=== PATIENT | female | born 1955 | race Caucasian/White ===

== ENCOUNTER 2020-02-18 12:42 | Inpatient (IN) | payer SELFPAY ==
[~2020-02-18] VITALS: Ht 165.1 cm; Wt 110.7 kg
[2020-02-18 13:00] VITALS: BP_SYST 140
[2020-02-18 14:51] LABS: INFLUENZA A&B ANTIGEN SCREEN NEGATIVE FOR A & B (NEGATIVE); RESPIRATORY SYNCYTIAL VIRUS NEGATIVE (NEGATIVE)
[2020-02-18 15:02] LABS: CALCIUM 7.7 mg/dL (8.4-11.0); CREATININE 0.95 mg/dL (0.55-1.30); POTASSIUM 3.3 mmol/L (3.5-5.1)
[2020-02-18 15:04] LABS: MEAN CORPUSCULAR HEMOGLOBIN 33 pg (27-31); MONOCYTES # (AUTO) 0.4 K/uL (0.0-1.0); WHITE BLOOD COUNT (AUTO) 3.9 K/uL (4.8-10.8)
[2020-02-18 15:06] LABS: ALBUMIN 1.9 g/dL (3.4-4.8); C-REACTIVE PROTEIN QUANT 0.9 mg/dL (0-0.5); TOTAL BILIRUBIN 6.7 mg/dL (0.0-1.0)
[2020-02-18 15:08] LABS: BILIRUBIN,URINE 2+ (NEGATIVE); BLOOD, URINE 1+ (NEGATIVE); CLARITY/URINE SL CLOUDY (CLEAR); COLOR,URINE YELLOW (YELLOW); GLUCOSE,URINE TRACE (NEGATIVE); KETONES,URINE NEGATIVE (NEGATIVE); LEUKOCYTE ESTERASE ,URINE TRACE (NEGATIVE); NITRITE, URINE POSITIVE (NEGATIVE); PH,URINE 5.5 (5.0-8.0); PROTEIN URINE TRACE (NEGATIVE)
[2020-02-18 15:09] LABS: BASOPHILS % (AUTO) 0.6 % (0.0-2.0); HEMATOCRIT 37.7 % (36-48); HEMOGLOBIN 12.5 g/dL (12.0-16.0); LYMPHOCYTES # (AUTO) 0.4 K/uL (1.0-5.5); LYMPHOCYTES % (AUTO) 11.2 % (20.5-51.5); MEAN CORPUSCULAR HGB CONC 33 % (32-36); MEAN CORPUSCULAR VOLUME 99 fL (79.0-98.0); MONOCYTES % (AUTO) 9.7 % (1.7-9.3); NEUTROPHILS % (AUTO) 77.5 % (40.0-70.0); RED BLOOD CELL COUNT(AUTO) 3.82 MIL/uL (4.2-6.2); RED CELL DISTRIBUTION WIDTH 20.4 % (9.0-15.0)
[2020-02-18 15:19] LABS: PLATELET COUNT (AUTO) 100 K/uL (130-430)
[2020-02-18 15:20] LABS: BACTERIA,URINE FEW /HPF (None Seen)
[2020-02-18] MEDS ORDERED: PIPERACILLIN/TAZO 3.375 GM in NS 50 ML IV ONE (16:00)
[2020-02-18] MEDS ORDERED: NACL 0.9% 3,000 ML IV ONE (16:00)
[2020-02-18] MEDS ORDERED: LEVOFLOXACIN 500 MG/D5W 100 ML IV ONE (16:15)
[2020-02-18] MEDS ORDERED: PIPERACILLIN/TAZOBACTAM 3.375 GM/VIAL (ZOSYN) IV ONE (16:24)
[2020-02-18] MEDS ORDERED: PRO40 PO (19:00)
[2020-02-18] MEDS ORDERED: DOCU250C14 PO (19:00)
[2020-02-18] MEDS ORDERED: POLY17PO4 PO (19:00)
[2020-02-18 20:11] VITALS: BP_SYST 147
[2020-02-18] MEDS ORDERED: HYDROcodone/ACETAMIN 10-325 MG TAB PO PRN (23:45)
[2020-02-18] MEDS ORDERED: ACETAMINOPHEN 325 MG TABLET PO PRN (23:45)
[2020-02-18] MEDS ORDERED: ONDANSETRON HCL 4 MG/2 ML VIAL IVP PRN (23:45)
[2020-02-18] MEDS ORDERED: HYDROcodone/ACETAMIN 5-325 MG TAB (NORCO/ VICODIN) PO PRN (23:45)
[2020-02-18] MEDS ORDERED: LORazepam 2 MG/ML VIAL IVP PRN (23:45)
[2020-02-18] MEDS ORDERED: ALBUTEROL SULFATE 0.083% 2.5 MG/3 ML VIAL.NEB INH PRN (23:45)
[2020-02-19 00:30] VITALS: BP_SYST 130
[2020-02-19 05:07] VITALS: BP_SYST 130
[2020-02-19] MEDS: NORMAL SALINE 5 ML DISP.SYRIN IVF SCH ×5 (05:37→22:00)
[2020-02-19 07:07] LABS: BASOPHILS % (AUTO) 0.7 % (0.0-2.0); EOSINOPHILS # (AUTO) 0.1 K/uL (0.0-0.4); EOSINOPHILS % (AUTO) 2.6 % (0.0-4.0); HEMATOCRIT 32.9 % (36-48); LYMPHOCYTES # (AUTO) 0.8 K/uL (1.0-5.5); MEAN CORPUSCULAR HEMOGLOBIN 33 pg (27-31); MEAN CORPUSCULAR HGB CONC 33 % (32-36); MEAN CORPUSCULAR VOLUME 99 fL (79.0-98.0); MONOCYTES # (AUTO) 0.5 K/uL (0.0-1.0); MONOCYTES % (AUTO) 12.2 % (1.7-9.3); NEUTROPHILS # (AUTO) 2.5 K/uL (1.8-7.7); NEUTROPHILS % (AUTO) 63.5 % (40.0-70.0); PLATELET COUNT (AUTO) 90 K/uL (130-430); RED BLOOD CELL COUNT(AUTO) 3.32 MIL/uL (4.2-6.2); RED CELL DISTRIBUTION WIDTH 20.5 % (9.0-15.0)
[2020-02-19 07:30] LABS: CALCIUM 7.5 mg/dL (8.4-11.0); CREATININE 0.76 mg/dL (0.55-1.30); PHOSPHORUS 2.9 mg/dL (2.7-4.5); POTASSIUM 3.5 mmol/L (3.5-5.1)
[2020-02-19 08:00] VITALS: BP_SYST 131
[2020-02-19] MEDS: DOCUSATE SODIUM 250 MG CAPSULE PO SCH ×2 (08:32→21:45)
[2020-02-19] MEDS: PANTOPRAZOLE SODIUM 40 MG TAB PO SCH (08:32)
[2020-02-19] MEDS ORDERED: POLYETHYLENE GLYCOL 3350, 17 GM/ POWD.PACK PO SCH (09:00)
[2020-02-19] MEDS: IPRATROPIUM BROM 0.5 MG/2.5 ML VIAL.NEB (ATROVENT) INH SCH ×5 (10:07→23:54)
[2020-02-19 12:00] VITALS: BP_SYST 147
[2020-02-19] MEDS ORDERED: ACETAMINOPHEN 325 MG TABLET PO PRN (12:30)
[2020-02-19] MEDS ORDERED: HYDROcodone/ACETAMIN 5-325 MG TAB (NORCO/ VICODIN) PO PRN (12:30)
[2020-02-19] MEDS ORDERED: ALBUTEROL SULFATE 0.083% 2.5 MG/3 ML VIAL.NEB INH PRN (12:30)
[2020-02-19] MEDS ORDERED: ONDANSETRON HCL 4 MG/2 ML VIAL IVP PRN (12:30)
[2020-02-19] MEDS ORDERED: LORazepam 2 MG/ML VIAL IVP PRN (12:30)
[2020-02-19] MEDS ORDERED: FUROSEMIDE 20 MG TABLET PO ONE (13:00)
[2020-02-19] MEDS ORDERED: NORMAL SALINE 5 ML DISP.SYRIN IVF SCH (14:00)
[2020-02-19 16:00] VITALS: BP_SYST 144
[2020-02-19] MEDS: LEVOFLOXACIN 500 MG/D5W 100 ML IV SCH (16:45)
[2020-02-19] MEDS: VANCOMYCIN HCL 1,500 MG in NS 250 ML IV SCH (19:13)
[2020-02-19 20:40] LABS: BARBITURATE, URINE NEGATIVE (NEG <=200); BENZODIAZEPINE, URINE NEGATIVE (NEG <=150); CANNABINOID, URINE NEGATIVE (NEG <=50); COCAINE, URINE NEGATIVE (NEG <=150); METHAMPHETAMINES SCREEN,URINE NEGATIVE (NEG <=500); OPIATE, URINE NEGATIVE (NEG <=100); PHENCYCLIDINE SCREEN,URINE NEGATIVE (NEG <=25); UR TRICYCLIC ANTIDEPRESSANTS NEGATIVE (NEG <=300); URINE AMPHETAMINE NEGATIVE (NEG <=500); URINE METHADONE NEGATIVE (NEG <=200); URINE OXYCODONE SCREEN NEGATIVE (NEG <=100); URINE PROPOXYPHENE SCREEN NEGATIVE (NEG <=300)
[2020-02-19 21:30] VITALS: BP_SYST 121
[2020-02-19] MEDS: POLYETHYLENE GLYCOL 3350, 17 GM/ POWD.PACK PO SCH (21:45)
[2020-02-20] VITALS (7 sets, daily range): BP systolic 104–141
[2020-02-20] MEDS: IPRATROPIUM BROM 0.5 MG/2.5 ML VIAL.NEB (ATROVENT) INH SCH ×6 (03:05→23:00)
[2020-02-20] MEDS: NORMAL SALINE 5 ML DISP.SYRIN IVF SCH ×6 (06:00→21:22)
[2020-02-20] MEDS: VANCOMYCIN HCL 1,500 MG in NS 250 ML IV SCH ×2 (06:15→18:45)
[2020-02-20 07:22] LABS: BASOPHILS % (AUTO) 0.7 % (0.0-2.0); EOSINOPHILS # (AUTO) 0.1 K/uL (0.0-0.4); EOSINOPHILS % (AUTO) 3.7 % (0.0-4.0); HEMATOCRIT 32.7 % (36-48); HEMOGLOBIN 10.8 g/dL (12.0-16.0); LYMPHOCYTES # (AUTO) 0.6 K/uL (1.0-5.5); LYMPHOCYTES % (AUTO) 20.1 % (20.5-51.5); MEAN CORPUSCULAR HEMOGLOBIN 33 pg (27-31); MEAN CORPUSCULAR HGB CONC 33 % (32-36); MEAN CORPUSCULAR VOLUME 99 fL (79.0-98.0); MONOCYTES # (AUTO) 0.5 K/uL (0.0-1.0); MONOCYTES % (AUTO) 14.4 % (1.7-9.3); NEUTROPHILS # (AUTO) 1.9 K/uL (1.8-7.7); NEUTROPHILS % (AUTO) 61.1 % (40.0-70.0); PLATELET COUNT (AUTO) 83 K/uL (130-430); RED BLOOD CELL COUNT(AUTO) 3.31 MIL/uL (4.2-6.2); RED CELL DISTRIBUTION WIDTH 20.7 % (9.0-15.0); WHITE BLOOD COUNT (AUTO) 3.2 K/uL (4.8-10.8)
[2020-02-20 07:31] LABS: INR 1.9 (0.8-1.2); PROTHROMBIN TIME 18.5 SECS (9.5-12.5)
[2020-02-20 07:38] LABS: ALBUMIN 1.5 g/dL (3.4-4.8); BILIRUBIN,DIRECT 2.6 mg/dL (0.0-0.3); CALCIUM 7.4 mg/dL (8.4-11.0); CREATININE 0.83 mg/dL (0.55-1.30); POTASSIUM 3.3 mmol/L (3.5-5.1); TOTAL BILIRUBIN 5.4 mg/dL (0.0-1.0)
[2020-02-20 09:03] LABS: TOTAL IRON BIND. CAPACITY 224 ug/dL (250-450)
[2020-02-20] MEDS: PANTOPRAZOLE SODIUM 40 MG TAB PO SCH (10:19)
[2020-02-20] MEDS: DOCUSATE SODIUM 250 MG CAPSULE PO SCH ×2 (10:19→21:21)
[2020-02-20] MEDS: FUROSEMIDE 20 MG TABLET PO SCH (10:19)
[2020-02-20] MEDS: POLYETHYLENE GLYCOL 3350, 17 GM/ POWD.PACK PO SCH ×2 (10:19→17:45)
[2020-02-20] MEDS: LEVOFLOXACIN 500 MG/D5W 100 ML IV SCH (16:57)
[2020-02-20] MEDS ORDERED: PHYTONADIONE 10 MG/ML AMP SUBCUT ONE (17:45)
[2020-02-21] MEDS: IPRATROPIUM BROM 0.5 MG/2.5 ML VIAL.NEB (ATROVENT) INH SCH ×6 (03:00→23:00)
[2020-02-21] MEDS: VANCOMYCIN HCL 1,500 MG in NS 250 ML IV SCH (05:15)
[2020-02-21] MEDS: NORMAL SALINE 5 ML DISP.SYRIN IVF SCH ×5 (05:15→22:00)
[2020-02-21 06:14] LABS: BASOPHILS % (AUTO) 0.8 % (0.0-2.0); EOSINOPHILS # (AUTO) 0.1 K/uL (0.0-0.4); EOSINOPHILS % (AUTO) 3.6 % (0.0-4.0); HEMATOCRIT 33.4 % (36-48); HEMOGLOBIN 11.1 g/dL (12.0-16.0); LYMPHOCYTES # (AUTO) 0.7 K/uL (1.0-5.5); LYMPHOCYTES % (AUTO) 18.9 % (20.5-51.5); MEAN CORPUSCULAR HEMOGLOBIN 33 pg (27-31); MEAN CORPUSCULAR HGB CONC 33 % (32-36); MEAN CORPUSCULAR VOLUME 100 fL (79.0-98.0); MONOCYTES # (AUTO) 0.4 K/uL (0.0-1.0); MONOCYTES % (AUTO) 12.3 % (1.7-9.3); NEUTROPHILS # (AUTO) 2.2 K/uL (1.8-7.7); NEUTROPHILS % (AUTO) 64.4 % (40.0-70.0); PLATELET COUNT (AUTO) 90 K/uL (130-430); RED BLOOD CELL COUNT(AUTO) 3.34 MIL/uL (4.2-6.2); RED CELL DISTRIBUTION WIDTH 21.2 % (9.0-15.0); WHITE BLOOD COUNT (AUTO) 3.5 K/uL (4.8-10.8)
[2020-02-21 06:30] LABS: ALBUMIN 1.5 g/dL (3.4-4.8); C-REACTIVE PROTEIN QUANT 1.6 mg/dL (0-0.5); CALCIUM 7.5 mg/dL (8.4-11.0); CREATININE 0.96 mg/dL (0.55-1.30); TOTAL BILIRUBIN 5.2 mg/dL (0.0-1.0)
[2020-02-21 06:54] LABS: POTASSIUM 2.9 mmol/L (3.5-5.1)
[2020-02-21] MEDS ORDERED: KCL 40 mEq in 100 mL (PREMIX) 100 ML IV ONE (07:30)
[2020-02-21] MEDS ORDERED: LIDOCAINE 1% 10 MG/ML, 50 ML MDV INJ ONE (07:30)
[2020-02-21 07:34] LABS: ERYTHROCYTE SEDIMENTATION RATE 49 MM/HR (0-20)
[2020-02-21 08:09] VITALS: BP_SYST 143
[2020-02-21] MEDS ORDERED: POTASSIUM CHLORIDE 40 MEQ, LIDOCAINE JECT 2% PF 100 MG 50 MG in NS 250 ML IV ONE (08:15)
[2020-02-21] MEDS: PANTOPRAZOLE SODIUM 40 MG TAB PO SCH (09:38)
[2020-02-21] MEDS: FUROSEMIDE 20 MG TABLET PO SCH (09:39)
[2020-02-21] MEDS: POLYETHYLENE GLYCOL 3350, 17 GM/ POWD.PACK PO SCH (09:39)
[2020-02-21] MEDS: DOCUSATE SODIUM 250 MG CAPSULE PO SCH ×2 (09:39→20:02)
[2020-02-21 12:55] VITALS: BP_SYST 136
[2020-02-21] MEDS: LEVOFLOXACIN 500 MG/D5W 100 ML IV SCH (16:36)
[2020-02-21 16:47] VITALS: BP_SYST 123
[2020-02-21 20:00] VITALS: BP_SYST 129
[2020-02-22] VITALS (7 sets, daily range): BP systolic 118–141
[2020-02-22 01:31] LABS: AFP, TUMOR MARKER 2.1 ng/mL (0.0-8.3); FERRITIN 66 ng/mL (15-150)
[2020-02-22] MEDS: IPRATROPIUM BROM 0.5 MG/2.5 ML VIAL.NEB (ATROVENT) INH SCH ×6 (03:34→23:25)
[2020-02-22] MEDS: NORMAL SALINE 5 ML DISP.SYRIN IVF SCH ×6 (06:00→22:00)
[2020-02-22 06:19] LABS: C-REACTIVE PROTEIN QUANT 1.2 mg/dL (0-0.5); CALCIUM 7.5 mg/dL (8.4-11.0); CREATININE 0.95 mg/dL (0.55-1.30); POTASSIUM 3.5 mmol/L (3.5-5.1)
[2020-02-22 07:10] LABS: HEPATITIS A AB, IgM Negative (Negative); HEPATITIS B CORE AB, IgM Negative (Negative); HEPATITIS B SURFACE AG Negative (Negative)
[2020-02-22 07:36] LABS: BASOPHILS % (AUTO) 0.7 % (0.0-2.0); EOSINOPHILS # (AUTO) 0.1 K/uL (0.0-0.4); EOSINOPHILS % (AUTO) 5.1 % (0.0-4.0); HEMOGLOBIN 10.2 g/dL (12.0-16.0); LYMPHOCYTES # (AUTO) 0.3 K/uL (1.0-5.5); LYMPHOCYTES % (AUTO) 11.4 % (20.5-51.5); MEAN CORPUSCULAR HEMOGLOBIN 33 pg (27-31); MEAN CORPUSCULAR HGB CONC 33 % (32-36); MEAN CORPUSCULAR VOLUME 101 fL (79.0-98.0); MONOCYTES # (AUTO) 0.4 K/uL (0.0-1.0); MONOCYTES % (AUTO) 14.9 % (1.7-9.3); NEUTROPHILS # (AUTO) 1.9 K/uL (1.8-7.7); NEUTROPHILS % (AUTO) 67.9 % (40.0-70.0); RED BLOOD CELL COUNT(AUTO) 3.08 MIL/uL (4.2-6.2)
[2020-02-22 07:39] LABS: WHITE BLOOD COUNT (AUTO) 2.8 K/uL (4.8-10.8)
[2020-02-22] MEDS: POLYETHYLENE GLYCOL 3350, 17 GM/ POWD.PACK PO SCH (08:29)
[2020-02-22] MEDS: FUROSEMIDE 20 MG TABLET PO SCH (08:29)
[2020-02-22] MEDS: PANTOPRAZOLE SODIUM 40 MG TAB PO SCH (08:30)
[2020-02-22] MEDS: DOCUSATE SODIUM 250 MG CAPSULE PO SCH ×2 (08:30→21:07)
[2020-02-22 08:50] LABS: ERYTHROCYTE SEDIMENTATION RATE 49 MM/HR (0-20)
[2020-02-22 10:21] LABS: PLATELET COUNT (AUTO) 65 K/uL (130-430)
[2020-02-22 16:06] LABS: ANTI NUCLEAR AB WITH REFLEX Negative (Negative)
[2020-02-22] MEDS: LEVOFLOXACIN 500 MG/D5W 100 ML IV SCH (16:27)
[2020-02-23] MEDS: HYDROcodone/ACETAMIN 10-325 MG TAB PO PRN ×2 (01:17→16:30)
[2020-02-23] MEDS: IPRATROPIUM BROM 0.5 MG/2.5 ML VIAL.NEB (ATROVENT) INH SCH ×6 (03:11→23:22)
[2020-02-23] MEDS: NORMAL SALINE 5 ML DISP.SYRIN IVF SCH ×6 (06:00→20:49)
[2020-02-23 06:20] LABS: ALBUMIN 1.5 g/dL (3.4-4.8); CALCIUM 7.5 mg/dL (8.4-11.0); CREATININE 0.95 mg/dL (0.55-1.30); POTASSIUM 3.6 mmol/L (3.5-5.1); TOTAL BILIRUBIN 4.6 mg/dL (0.0-1.0)
[2020-02-23 06:21] LABS: BASOPHILS % (AUTO) 0.6 % (0.0-2.0); EOSINOPHILS # (AUTO) 0.1 K/uL (0.0-0.4); HEMATOCRIT 30.6 % (36-48); HEMOGLOBIN 10.2 g/dL (12.0-16.0); LYMPHOCYTES # (AUTO) 0.4 K/uL (1.0-5.5); LYMPHOCYTES % (AUTO) 11.9 % (20.5-51.5); MEAN CORPUSCULAR HEMOGLOBIN 34 pg (27-31); MEAN CORPUSCULAR HGB CONC 33 % (32-36); MEAN CORPUSCULAR VOLUME 100 fL (79.0-98.0); MONOCYTES # (AUTO) 0.4 K/uL (0.0-1.0); MONOCYTES % (AUTO) 12.6 % (1.7-9.3); NEUTROPHILS # (AUTO) 2.1 K/uL (1.8-7.7); NEUTROPHILS % (AUTO) 70.9 % (40.0-70.0); PLATELET COUNT (AUTO) 67 K/uL (130-430); RED BLOOD CELL COUNT(AUTO) 3.06 MIL/uL (4.2-6.2); RED CELL DISTRIBUTION WIDTH 21.5 % (9.0-15.0)
[2020-02-23 07:01] LABS: C-REACTIVE PROTEIN QUANT 1.3 mg/dL (0-0.5)
[2020-02-23 07:40] LABS: ERYTHROCYTE SEDIMENTATION RATE 57 MM/HR (0-20)
[2020-02-23 07:50] VITALS: BP_SYST 130
[2020-02-23] MEDS: PANTOPRAZOLE SODIUM 40 MG TAB PO SCH (08:35)
[2020-02-23] MEDS: POLYETHYLENE GLYCOL 3350, 17 GM/ POWD.PACK PO SCH (08:36)
[2020-02-23] MEDS: FUROSEMIDE 20 MG TABLET PO SCH (08:36)
[2020-02-23] MEDS: DOCUSATE SODIUM 250 MG CAPSULE PO SCH ×2 (08:36→20:47)
[2020-02-23 09:40] LABS: ALBUMIN 1.7 g/dL (3.4-4.8); BILIRUBIN,DIRECT 2.3 mg/dL (0.0-0.3); TOTAL BILIRUBIN 5.1 mg/dL (0.0-1.0)
[2020-02-23 12:56] VITALS: BP_SYST 131
[2020-02-23 16:00] VITALS: BP_SYST 131
[2020-02-23] MEDS: LEVOFLOXACIN 500 MG/D5W 100 ML IV SCH (16:25)
[2020-02-23 20:00] VITALS: BP_SYST 134
[2020-02-24 00:07] VITALS: BP_SYST 128
[2020-02-24] MEDS: IPRATROPIUM BROM 0.5 MG/2.5 ML VIAL.NEB (ATROVENT) INH SCH ×6 (03:35→23:50)
[2020-02-24] MEDS: NORMAL SALINE 5 ML DISP.SYRIN IVF SCH ×6 (05:28→21:26)
[2020-02-24 06:32] LABS: BASOPHILS % (AUTO) 0.6 % (0.0-2.0); EOSINOPHILS # (AUTO) 0.1 K/uL (0.0-0.4); EOSINOPHILS % (AUTO) 3.8 % (0.0-4.0); HEMATOCRIT 29.5 % (36-48); HEMOGLOBIN 9.8 g/dL (12.0-16.0); LYMPHOCYTES # (AUTO) 0.6 K/uL (1.0-5.5); MEAN CORPUSCULAR HEMOGLOBIN 33 pg (27-31); MEAN CORPUSCULAR HGB CONC 33 % (32-36); MEAN CORPUSCULAR VOLUME 101 fL (79.0-98.0); MONOCYTES # (AUTO) 0.5 K/uL (0.0-1.0); MONOCYTES % (AUTO) 14.4 % (1.7-9.3); NEUTROPHILS # (AUTO) 2.1 K/uL (1.8-7.7); NEUTROPHILS % (AUTO) 62.2 % (40.0-70.0); PLATELET COUNT (AUTO) 55 K/uL (130-430); RED BLOOD CELL COUNT(AUTO) 2.93 MIL/uL (4.2-6.2); WHITE BLOOD COUNT (AUTO) 3.3 K/uL (4.8-10.8)
[2020-02-24 06:50] LABS: ALBUMIN 1.5 g/dL (3.4-4.8); C-REACTIVE PROTEIN QUANT 1.1 mg/dL (0-0.5); CALCIUM 7.4 mg/dL (8.4-11.0); POTASSIUM 3.5 mmol/L (3.5-5.1)
[2020-02-24 07:09] LABS: CREATININE 0.83 mg/dL (0.55-1.30)
[2020-02-24 08:11] LABS: ERYTHROCYTE SEDIMENTATION RATE 60 MM/HR (0-20)
[2020-02-24] MEDS: DOCUSATE SODIUM 250 MG CAPSULE PO SCH ×2 (08:36→21:20)
[2020-02-24] MEDS: PANTOPRAZOLE SODIUM 40 MG TAB PO SCH (08:37)
[2020-02-24] MEDS: FUROSEMIDE 20 MG TABLET PO SCH (08:37)
[2020-02-24] MEDS: POLYETHYLENE GLYCOL 3350, 17 GM/ POWD.PACK PO SCH (08:37)
[2020-02-24 09:37] VITALS: BP_SYST 133
[2020-02-24 11:33] LABS: ANTI-SMOOTH MUSCLE AB 20 Units (0-19)
[2020-02-24 12:24] VITALS: BP_SYST 129
[2020-02-24] MEDS: LEVOFLOXACIN 500 MG/D5W 100 ML IV SCH (16:10)
[2020-02-24 16:46] VITALS: BP_SYST 122
[2020-02-24] MEDS ORDERED: FURO-150 PO (17:51)
[2020-02-24] MEDS ORDERED: DOXY100T2 PO (17:51)
[2020-02-24] MEDS ORDERED: HYDR-4272 PO (17:51)
[2020-02-24] MEDS ORDERED: DOCU250C14 PO (17:51)
[2020-02-24] MEDS ORDERED: POLY17PO4 PO (17:51)
[2020-02-24] MEDS ORDERED: PRO40 PO (17:51)
[2020-02-24 20:45] VITALS: BP_SYST 130
[2020-02-24 23:46] VITALS: BP_SYST 114
[2020-02-25] MEDS: IPRATROPIUM BROM 0.5 MG/2.5 ML VIAL.NEB (ATROVENT) INH SCH ×5 (03:49→23:55)
[2020-02-25] MEDS: NORMAL SALINE 5 ML DISP.SYRIN IVF SCH ×4 (05:56→20:04)
[2020-02-25 08:09] LABS: ALBUMIN 1.5 g/dL (3.4-4.8); C-REACTIVE PROTEIN QUANT 1.2 mg/dL (0-0.5); CALCIUM 7.3 mg/dL (8.4-11.0); CREATININE 0.99 mg/dL (0.55-1.30); POTASSIUM 3.8 mmol/L (3.5-5.1)
[2020-02-25 08:15] LABS: BASOPHILS % (AUTO) 0.5 % (0.0-2.0); EOSINOPHILS # (AUTO) 0.1 K/uL (0.0-0.4); EOSINOPHILS % (AUTO) 4.1 % (0.0-4.0); HEMATOCRIT 29.8 % (36-48); HEMOGLOBIN 9.8 g/dL (12.0-16.0); LYMPHOCYTES # (AUTO) 0.6 K/uL (1.0-5.5); MEAN CORPUSCULAR HEMOGLOBIN 34 pg (27-31); MEAN CORPUSCULAR HGB CONC 33 % (32-36); MEAN CORPUSCULAR VOLUME 101 fL (79.0-98.0); MONOCYTES # (AUTO) 0.4 K/uL (0.0-1.0); MONOCYTES % (AUTO) 13.3 % (1.7-9.3); NEUTROPHILS # (AUTO) 2.1 K/uL (1.8-7.7); NEUTROPHILS % (AUTO) 65.1 % (40.0-70.0); RED BLOOD CELL COUNT(AUTO) 2.94 MIL/uL (4.2-6.2); RED CELL DISTRIBUTION WIDTH 21.8 % (9.0-15.0); WHITE BLOOD COUNT (AUTO) 3.2 K/uL (4.8-10.8)
[2020-02-25 09:05] LABS: ERYTHROCYTE SEDIMENTATION RATE 50 MM/HR (0-20)
[2020-02-25] MEDS: DOCUSATE SODIUM 250 MG CAPSULE PO SCH ×2 (09:18→20:04)
[2020-02-25] MEDS: PANTOPRAZOLE SODIUM 40 MG TAB PO SCH (09:18)
[2020-02-25] MEDS: FUROSEMIDE 20 MG TABLET PO SCH (09:18)
[2020-02-25] MEDS: POLYETHYLENE GLYCOL 3350, 17 GM/ POWD.PACK PO SCH (09:18)
[2020-02-25 10:04] LABS: PLATELET COUNT (AUTO) 30 K/uL (130-430)
[2020-02-25 12:41] VITALS: BP_SYST 122
[2020-02-25] MEDS: LEVOFLOXACIN 500 MG/D5W 100 ML IV SCH (16:20)
[2020-02-25 16:23] VITALS: BP_SYST 122
[2020-02-25 16:36] VITALS: BP_SYST 117
[2020-02-25 20:14] VITALS: BP_SYST 131
[2020-02-26] MEDS: IPRATROPIUM BROM 0.5 MG/2.5 ML VIAL.NEB (ATROVENT) INH SCH ×3 (03:50→11:18)
[2020-02-26] MEDS: NORMAL SALINE 5 ML DISP.SYRIN IVF SCH (05:58)
[2020-02-26 06:38] LABS: BASOPHILS % (AUTO) 0.7 % (0.0-2.0); EOSINOPHILS # (AUTO) 0.1 K/uL (0.0-0.4); EOSINOPHILS % (AUTO) 3.2 % (0.0-4.0); HEMATOCRIT 29.7 % (36-48); HEMOGLOBIN 9.8 g/dL (12.0-16.0); LYMPHOCYTES # (AUTO) 0.6 K/uL (1.0-5.5); LYMPHOCYTES % (AUTO) 17.2 % (20.5-51.5); MEAN CORPUSCULAR HEMOGLOBIN 33 pg (27-31); MEAN CORPUSCULAR HGB CONC 33 % (32-36); MEAN CORPUSCULAR VOLUME 101 fL (79.0-98.0); MONOCYTES # (AUTO) 0.5 K/uL (0.0-1.0); MONOCYTES % (AUTO) 14.6 % (1.7-9.3); NEUTROPHILS # (AUTO) 2.1 K/uL (1.8-7.7); NEUTROPHILS % (AUTO) 64.3 % (40.0-70.0); PLATELET COUNT (AUTO) 55 K/uL (130-430); RED BLOOD CELL COUNT(AUTO) 2.95 MIL/uL (4.2-6.2); WHITE BLOOD COUNT (AUTO) 3.3 K/uL (4.8-10.8)
[2020-02-26 06:47] LABS: C-REACTIVE PROTEIN QUANT 1.2 mg/dL (0-0.5); CREATININE 0.99 mg/dL (0.55-1.30); POTASSIUM 3.5 mmol/L (3.5-5.1)
[2020-02-26 07:06] LABS: HEPATITIS A AB, IgM Negative (Negative); HEPATITIS B CORE AB, IgM Negative (Negative); HEPATITIS B SURFACE AG Negative (Negative)
[2020-02-26 07:38] LABS: ERYTHROCYTE SEDIMENTATION RATE 57 MM/HR (0-20)
[2020-02-26 08:00] VITALS: BP_SYST 133
[2020-02-26 08:08] LABS: FOLATE (FOLIC ACID) 11.1 ng/mL (>3.0)
[2020-02-26] MEDS: DOCUSATE SODIUM 250 MG CAPSULE PO SCH (08:39)
[2020-02-26] MEDS: PANTOPRAZOLE SODIUM 40 MG TAB PO SCH (08:39)
[2020-02-26] MEDS: POLYETHYLENE GLYCOL 3350, 17 GM/ POWD.PACK PO SCH (08:39)
[2020-02-26] MEDS: FUROSEMIDE 20 MG TABLET PO SCH (08:43)
[2020-02-26 10:55] VITALS: BP_SYST 138
[2020-02-26 12:45] VITALS: BP_SYST 114
[2020-02-26] MEDS ORDERED: LEVOFLOXACIN 500 MG/D5W 100 ML IV SCH (17:00)
== END 2020-02-26 14:36 | disposition home or self-care (01) | DRG 871 ==
LOC: SED 12:42 → EEVIPCON 12:42 → STU 17:04
PROVIDERS: ADMIT Preventive Medicine Preventive Medicine/Occupational Environmental Medicine; ATTEND Preventive Medicine Preventive Medicine/Occupational Environmental Medicine
DX: A41.01 Sepsis due to Methicillin susceptible Staphylococcus aureus (principal); E43 Unspecified severe protein-calorie malnutrition; J18.9 Pneumonia, unspecified organism; J96.01 Acute respiratory failure with hypoxia; D61.818 Other pancytopenia; E87.1 Hypo-osmolality and hyponatremia; J44.0 Chronic obstructive pulmonary disease with (acute) lower respiratory infection; N39.0 Urinary tract infection, site not specified; R18.8 Other ascites; Z68.41 Body mass index [BMI] 40.0-44.9, adult; E66.01 Morbid (severe) obesity due to excess calories; E83.51 Hypocalcemia; E87.6 Hypokalemia; F17.210 Nicotine dependence, cigarettes, uncomplicated; K59.09 Other constipation; K74.60 Unspecified cirrhosis of liver; G89.29 Other chronic pain; Z20.828 Contact with and (suspected) exposure to other viral communicable diseases; D69.6 Thrombocytopenia, unspecified; D64.9 Anemia, unspecified; M54.9 Dorsalgia, unspecified; Z85.43 Personal history of malignant neoplasm of ovary; Z90.710 Acquired absence of both cervix and uterus; Z90.49 Acquired absence of other specified parts of digestive tract; Z79.899 Other long term (current) drug therapy; Z98.51 Tubal ligation status
CPT/HCPCS: 36415; 36600; 71045; 74018; 76700-TC; 80048; 80053; 80074; 80076; 80202-TC; 80307; 81000-TC; 82105; 82390; 82550-TC; 82607; 82728; 82746; 82803-TC; 83516; 83540-TC; 83550-TC; 83605; 83615-TC; 83735-TC; 83880; 84100-TC; 84443-TC; 84484; 85025; 85610-TC; 85651-TC; 86038; 86140; 86710; 87040-TC; 87086; 87186-TC; 87420; 93005; 93306; 94640; 94760; 96365; 96367; 97112-GP; 97116-GP; 97530-GP; 99291; G0378; J1956; J2543; J3370; J3430; J3480; J7030; J7050; J7613; U0002

== ENCOUNTER 2020-04-19 14:25 | Inpatient (IN) | payer MEDICAID, SELFPAY ==
[~2020-04-19] VITALS: Ht 165.1 cm; Wt 122.9 kg
[~2020-04-19 14:25] MED LIST: DOCU250C14 PO; DOXY100T2 PO; FURO-150 PO; HYDR-4272 PO; POLY17PO4 PO; PRO40 PO
[2020-04-19 15:02] VITALS: BP_SYST 125
[2020-04-19 15:55] LABS: BASOPHILS % (AUTO) 0.3 % (0.0-2.0); EOSINOPHILS # (AUTO) 0.2 K/uL (0.0-0.4); EOSINOPHILS % (AUTO) 3.2 % (0.0-4.0); HEMATOCRIT 26.5 % (36-48); HEMOGLOBIN 8.7 g/dL (12.0-16.0); LYMPHOCYTES # (AUTO) 0.6 K/uL (1.0-5.5); LYMPHOCYTES % (AUTO) 9.9 % (20.5-51.5); MEAN CORPUSCULAR HEMOGLOBIN 35 pg (27-31); MEAN CORPUSCULAR HGB CONC 33 % (32-36); MEAN CORPUSCULAR VOLUME 107 fL (79.0-98.0); MONOCYTES # (AUTO) 0.7 K/uL (0.0-1.0); MONOCYTES % (AUTO) 10.3 % (1.7-9.3); NEUTROPHILS # (AUTO) 4.9 K/uL (1.8-7.7); NEUTROPHILS % (AUTO) 76.3 % (40.0-70.0); PLATELET COUNT (AUTO) 94 K/uL (130-430); RED BLOOD CELL COUNT(AUTO) 2.48 MIL/uL (4.2-6.2); RED CELL DISTRIBUTION WIDTH 19.4 % (9.0-15.0); WHITE BLOOD COUNT (AUTO) 6.4 K/uL (4.8-10.8)
[2020-04-19 16:10] LABS: CALCIUM 7.8 mg/dL (8.4-11.0); CREATININE 1.05 mg/dL (0.55-1.30); POTASSIUM 3.5 mmol/L (3.5-5.1)
[2020-04-19 16:15] LABS: INR 1.8 (0.8-1.2)
[2020-04-19 16:17] LABS: ALBUMIN 1.5 g/dL (3.4-4.8); TOTAL BILIRUBIN 6.7 mg/dL (0.0-1.0)
[2020-04-19] MEDS ORDERED: PIPERACILLIN/TAZO 3.375 GM in NS 50 ML IV ONE (17:00)
[2020-04-19] MEDS ORDERED: NACL 0.9% 3,000 ML IV ONE (17:00)
[2020-04-19] MEDS ORDERED: LACTULOSE 20 GM/30 ML UDC PO ONE (17:15)
[2020-04-19 17:24] LABS: BILIRUBIN,URINE 2+ (NEGATIVE); BLOOD, URINE NEGATIVE (NEGATIVE); COLOR,URINE ORANGE (YELLOW); GLUCOSE,URINE NEGATIVE (NEGATIVE); KETONES,URINE TRACE (NEGATIVE); LEUKOCYTE ESTERASE ,URINE TRACE (NEGATIVE); NITRITE, URINE POSITIVE (NEGATIVE); PH,URINE 5.5 (5.0-8.0); PROTEIN URINE TRACE (NEGATIVE)
[2020-04-19] MEDS ORDERED: LEVOFLOXACIN 500 MG/D5W 100 ML IV ONE (17:30)
[2020-04-19] MEDS ORDERED: PIPERACILLIN/TAZOBACTAM 3.375 GM/VIAL (ZOSYN) IV ONE (17:30)
[2020-04-19 17:43] LABS: CLARITY/URINE HAZY (CLEAR)
[2020-04-19 18:39] LABS: BACTERIA,URINE FEW /HPF (None Seen); RBC,URINE 0-3 /HPF (0-3)
[2020-04-19 18:40] LABS: MUCUS,URINE 3+ /LPF (None Seen); OTHER CASTS, URINE WBC CASTS 1+ /LPF (None Seen)
[2020-04-19 19:22] VITALS: BP_SYST 125
[2020-04-19] MEDS: SPIRONOLACTONE 25 MG TABLET (ALDACTONE) PO SCH (21:45)
[2020-04-19] MEDS: FUROSEMIDE 40 MG TABLET PO SCH (21:45)
[2020-04-19] MEDS ORDERED: HYDROcodone/ACETAMIN 5-325 MG TAB (NORCO/ VICODIN) PO PRN (21:45)
[2020-04-19] MEDS ORDERED: LEVOFLOXACIN 500 MG/D5W 100 ML IV SCH (21:45)
[2020-04-19] MEDS ORDERED: ZOLPIDEM TARTRATE 5 MG TABLET PO PRN (21:45)
[2020-04-19] MEDS: LACTULOSE 20 GM/30 ML UDC PO SCH (22:00)
[2020-04-19] MEDS ORDERED: MAG-AL HYDROX/SIMETH 30 ML UDC PO PRN (22:00)
[2020-04-19] MEDS ORDERED: ACETAMINOPHEN 325 MG TABLET PO PRN (22:00)
[2020-04-20] VITALS (7 sets, daily range): BP systolic 111–151
[2020-04-20 06:08] LABS: BASOPHILS % (AUTO) 0.5 % (0.0-2.0); EOSINOPHILS # (AUTO) 0.3 K/uL (0.0-0.4); EOSINOPHILS % (AUTO) 4.9 % (0.0-4.0); HEMATOCRIT 23.3 % (36-48); HEMOGLOBIN 7.9 g/dL (12.0-16.0); LYMPHOCYTES # (AUTO) 0.7 K/uL (1.0-5.5); MEAN CORPUSCULAR HEMOGLOBIN 36 pg (27-31); MEAN CORPUSCULAR HGB CONC 34 % (32-36); MEAN CORPUSCULAR VOLUME 107 fL (79.0-98.0); MONOCYTES # (AUTO) 0.6 K/uL (0.0-1.0); MONOCYTES % (AUTO) 10.5 % (1.7-9.3); NEUTROPHILS # (AUTO) 4.1 K/uL (1.8-7.7); NEUTROPHILS % (AUTO) 72.1 % (40.0-70.0); RED BLOOD CELL COUNT(AUTO) 2.18 MIL/uL (4.2-6.2); RED CELL DISTRIBUTION WIDTH 18.9 % (9.0-15.0); WHITE BLOOD COUNT (AUTO) 5.6 K/uL (4.8-10.8)
[2020-04-20 06:47] LABS: ALANINE AMINOTRANSFERASE 30 U/L (12-78); ALBUMIN 1.3 g/dL (3.4-4.8); ASPARTATE AMINOTRANSFERASE 63 U/L (10-37); BILIRUBIN,DIRECT 3.1 mg/dL (0.0-0.3); CALCIUM 7.6 mg/dL (8.4-11.0); CHLORIDE 108 mmol/L (98-107); CREATININE 0.99 mg/dL (0.55-1.30); GLUCOSE 92 mg/dL (70-99); POTASSIUM 3.8 mmol/L (3.5-5.1); SODIUM SERUM 140 mmol/L (136-145); THYROID STIMULATING HORMONE 4.99 uIu/mL (0.36-3.74); TOTAL BILIRUBIN 6.4 mg/dL (0.0-1.0); UREA NITROGEN, BLOOD 21 mg/dL (8-21)
[2020-04-20 06:58] LABS: ANION GAP < 3 (5-15); GFR AFRICAN AMERICAN 73 mL/min (>90)
[2020-04-20 07:03] LABS: PLATELET COUNT (AUTO) 72 K/uL (130-430)
[2020-04-20] MEDS: DOCUSATE SODIUM 250 MG CAPSULE PO SCH ×2 (09:00→22:34)
[2020-04-20] MEDS: LACTULOSE 20 GM/30 ML UDC PO SCH ×2 (09:00→22:33)
[2020-04-20] MEDS: SPIRONOLACTONE 25 MG TABLET (ALDACTONE) PO SCH ×2 (09:00→21:00)
[2020-04-20] MEDS ORDERED: LEVOFLOXACIN 500 MG/D5W 100 ML IV ONE (09:00)
[2020-04-20] MEDS: PANTOPRAZOLE SODIUM 40 MG TAB PO SCH (09:00)
[2020-04-20] MEDS: POLYETHYLENE GLYCOL 3350, 17 GM/ POWD.PACK PO SCH (09:00)
[2020-04-20] MEDS: FUROSEMIDE 40 MG TABLET PO SCH (09:00)
[2020-04-20] MEDS: LEVOFLOXACIN 500 MG/D5W 100 ML IV SCH (09:00)
[2020-04-20] MEDS ORDERED: LACTULOSE 20 GM/30 ML UDC PO SCH (23:00)
[2020-04-21] VITALS: BP_SYST 123
[2020-04-21 06:18] LABS: ALBUMIN 1.4 g/dL (3.4-4.8); CALCIUM 7.8 mg/dL (8.4-11.0); CREATININE 0.98 mg/dL (0.55-1.30); POTASSIUM 3.8 mmol/L (3.5-5.1); TOTAL BILIRUBIN 7.8 mg/dL (0.0-1.0)
[2020-04-21 06:35] LABS: BASOPHILS % (AUTO) 0.7 % (0.0-2.0); EOSINOPHILS # (AUTO) 0.4 K/uL (0.0-0.4); EOSINOPHILS % (AUTO) 5.7 % (0.0-4.0); LYMPHOCYTES # (AUTO) 0.7 K/uL (1.0-5.5); LYMPHOCYTES % (AUTO) 10.7 % (20.5-51.5); MEAN CORPUSCULAR HEMOGLOBIN 36 pg (27-31); MEAN CORPUSCULAR HGB CONC 34 % (32-36); MEAN CORPUSCULAR VOLUME 107 fL (79.0-98.0); MONOCYTES # (AUTO) 0.6 K/uL (0.0-1.0); MONOCYTES % (AUTO) 9.6 % (1.7-9.3); NEUTROPHILS # (AUTO) 4.6 K/uL (1.8-7.7); NEUTROPHILS % (AUTO) 73.3 % (40.0-70.0); PLATELET COUNT (AUTO) 98 K/uL (130-430); RED BLOOD CELL COUNT(AUTO) 2.35 MIL/uL (4.2-6.2); RED CELL DISTRIBUTION WIDTH 18.5 % (9.0-15.0); WHITE BLOOD COUNT (AUTO) 6.3 K/uL (4.8-10.8)
[2020-04-21 07:03] LABS: HEMOGLOBIN 8.4 g/dL (12.0-16.0)
[2020-04-21 08:00] VITALS: BP_SYST 148
[2020-04-21] MEDS: PANTOPRAZOLE SODIUM 40 MG TAB PO SCH (09:27)
[2020-04-21] MEDS: FUROSEMIDE 40 MG TABLET PO SCH (09:28)
[2020-04-21] MEDS: POLYETHYLENE GLYCOL 3350, 17 GM/ POWD.PACK PO SCH (09:29)
[2020-04-21] MEDS: SPIRONOLACTONE 25 MG TABLET (ALDACTONE) PO SCH (09:29)
[2020-04-21] MEDS: LEVOFLOXACIN 500 MG/D5W 100 ML IV SCH (09:30)
[2020-04-21] MEDS ORDERED: IPRATROPIUM/ALBUTEROL SULFATE 3 ML AMPUL.NEB (DUONEB) INH ONE (10:00)
[2020-04-21 10:17] VITALS: BP_SYST 123
[2020-04-21] MEDS ORDERED: BALSAM PERU/CASTOR OIL 60 GM OINT...G. TP ONE (12:00)
[2020-04-21 12:09] VITALS: BP_SYST 130
[2020-04-21] MEDS ORDERED: LEVOFLOXACIN 500 MG TABLET PO ONE (13:00)
[2020-04-21 16:10] VITALS: BP_SYST 152
[2020-04-21 16:48] VITALS: BP_SYST 152
[2020-04-21] MEDS ORDERED: IPRATROPIUM/ALBUTEROL SULFATE 3 ML AMPUL.NEB (DUONEB) INH SCH (19:00)
[2020-04-22] MEDS ORDERED: BALSAM PERU/CASTOR OIL 60 GM OINT...G. TP SCH (09:00)
== END 2020-04-21 17:15 | disposition home or self-care (01) | DRG 383 ==
LOC: SED 14:25 → SMU 18:05
PROVIDERS: ADMIT Internal Medicine; ATTEND Internal Medicine
DX: L03.115 Cellulitis of right lower limb (principal); E43 Unspecified severe protein-calorie malnutrition; D68.9 Coagulation defect, unspecified; R18.8 Other ascites; E88.09 Other disorders of plasma-protein metabolism, not elsewhere classified; Z68.45 Body mass index [BMI] 70 or greater, adult; K72.90 Hepatic failure, unspecified without coma; K74.60 Unspecified cirrhosis of liver; N39.0 Urinary tract infection, site not specified; D64.9 Anemia, unspecified; K75.81 Nonalcoholic steatohepatitis (NASH); Z85.43 Personal history of malignant neoplasm of ovary; Z87.891 Personal history of nicotine dependence; Z90.49 Acquired absence of other specified parts of digestive tract; Z91.018 Allergy to other foods; Z90.710 Acquired absence of both cervix and uterus
CPT/HCPCS: 36415; 36600; 71045; 80048; 80053; 80076; 81000-TC; 82140-TC; 82803-TC; 83605; 83735-TC; 83880; 84439; 84443-TC; 84484; 85025; 85610-TC; 85730-TC; 87040-TC; 87086; 93005; 93970; 94640; 94760; 96365; 96367; 97110-GP; 97116-GP; 97163; 97530-GP; 99285; J1956; J2543